=== PATIENT | female | born 1940 | race Caucasian/White ===

== ENCOUNTER 2017-08-09 17:24 | Observation (INO) | payer OTHER ==
[~2017-08-09] VITALS: Ht 162.6 cm; Wt 66.1 kg
[2017-08-09 17:58] LABS: HEMOGLOBIN 11.1 G/DL (11.9-15.5); MCH 31.7 PG (29.0-34.0); MCHC 33.6 G/DL (30.0-36.0); MCV 94.3 FL (83-99); PLATELET COUNT 125 K/uL (156-360); RBC DIS.WIDTH-SD 54.3 % (39-53); WHITE BLOOD COUNT 4.8 K/uL (4.1-10.2)
[2017-08-09 18:06] LABS: CHLORIDE 107 mEq/L (99-109); POTASSIUM 4.4 mEq/L (3.7-5.4); SODIUM 142 mEq/L (136-147)
[2017-08-09 18:08] LABS: GLUCOSE 98 mg/dL (70-99)
[2017-08-09 18:12] LABS: CREATININE 0.7 mg/dL (0.6-1.3); GFR ESTIMATE (CALCULATED) > 59 mL/min/
[2017-08-09 18:13] LABS: UREA NITROGEN (BUN) 12 mg/dL (9-23)
[2017-08-09 18:19] LABS: TROP-I INTERPRETATION NEGATIVE; TROPONIN-I 0.03 ng/mL (0.0-0.30)
[2017-08-09] MEDS ORDERED: PREDNISONE1 MG PO (19:45)
[2017-08-09] MEDS ORDERED: LANOXIN125 MCG PO (19:45)
[2017-08-09] MEDS ORDERED: LIPITOR20 MG PO (19:46)
[2017-08-09] MEDS ORDERED: VASOTEC20 MG PO (19:46)
[2017-08-09] MEDS ORDERED: ELIQUIS5 MG PO (19:46)
[2017-08-09] MEDS ORDERED: COREG12.5 M1 PO (19:46)
[2017-08-09] MEDS ORDERED: FOLIC ACID1 MG PO (19:47)
[2017-08-09] MEDS ORDERED: METHOTREXATE2.5 MG PO (19:48)
[2017-08-09] MEDS ORDERED: SINGULAIR10 MG PO (19:48)
[2017-08-09] MEDS ORDERED: CAL-MAG TABLET1 EACH PO (19:49)
[2017-08-09] MEDS ORDERED: VITAMIN D31000 UNI2 PO (19:49)
[2017-08-09] MEDS ORDERED: TYLENOL EXTRA500 MG PO (19:50)
[2017-08-09] MEDS ORDERED: BREO ELLIPTA I1 EACH IH (19:50)
[2017-08-09 20:05] LABS: INTER. NORMALIZED RATIO 1.7
[2017-08-09 20:59] LABS: PTT 34.1 SEC (25-37)
[2017-08-09 22:09] VITALS: BP 139/89
[2017-08-10 01:19] LABS: TROP-I INTERPRETATION NEGATIVE; TROPONIN-I 0.02 ng/mL (0.0-0.30)
[2017-08-10 04:20] VITALS: BP 121/59
[2017-08-10 05:52] LABS: HEMOGLOBIN 10.2 G/DL (11.9-15.5); MCHC 32.9 G/DL (30.0-36.0); MCV 94.2 FL (83-99); NRBC (%) 0.5 /100 WBC (0-0); PLATELET COUNT 115 K/uL (156-360); RBC DIS.WIDTH-CV 16.3 % (11.8-14.6); RBC DIS.WIDTH-SD 54.5 % (39-53); RED BLOOD COUNT 3.29 M/uL (3.80-5.20); WHITE BLOOD COUNT 3.7 K/uL (4.1-10.2)
[2017-08-10 06:16] LABS: TROP-I INTERPRETATION NEGATIVE; TROPONIN-I 0.02 ng/mL (0.0-0.30)
[2017-08-10 06:26] LABS: CHLORIDE 108 MEQ/L (99-109); CREATININE 0.6 MG/DL (0.6-1.3); GFR ESTIMATE (CALCULATED) > 59 mL/min/; GLUCOSE 103 mg/dL (70-99); POTASSIUM 3.7 MEQ/L (3.7-5.4); SODIUM 144 MEQ/L (136-147); UREA NITROGEN (BUN) 14 mg/dL (9-23)
[2017-08-10] MEDS ORDERED: FUROSEMIDE20 MG PO (12:39)
== END 2017-08-10 16:30 | disposition home or self-care (01) ==
LOC: EME 17:24 → EDOF 21:01 → 4SOUTH 21:01 → EDOF 21:01 → ENRESERV 21:04 → 4SOUTH 21:45 → ENPENDDIS 08-10 → 4SOUTH 08-10 16:30
PROVIDERS: Emergency Medicine; Hospitalist
DX: R07.9 Chest pain, unspecified (principal); I11.0 Hypertensive heart disease with heart failure; I50.22 Chronic systolic (congestive) heart failure; I25.5 Ischemic cardiomyopathy; I48.1 Persistent atrial fibrillation; D64.9 Anemia, unspecified; D69.6 Thrombocytopenia, unspecified; M06.9 Rheumatoid arthritis, unspecified; J45.909 Unspecified asthma, uncomplicated; I25.10 Atherosclerotic heart disease of native coronary artery without angina pectoris; Z95.5 Presence of coronary angioplasty implant and graft; Z91.14 Patient's other noncompliance with medication regimen; Z79.01 Long term (current) use of anticoagulants; M54.5 Low back pain; Z91.81 History of falling; Z90.49 Acquired absence of other specified parts of digestive tract; Z90.710 Acquired absence of both cervix and uterus; Z82.49 Family history of ischemic heart disease and other diseases of the circulatory system; Z80.1 Family history of malignant neoplasm of trachea, bronchus and lung; Z91.040 Latex allergy status; Z88.1 Allergy status to other antibiotic agents; Z88.0 Allergy status to penicillin
CPT/HCPCS: 71046; 72131; 80048; 83880; 84484; 85027; 85610; 85730; 93005; 94640; 99281; 99285; G0378; J1940; J7512; J8610